=== PATIENT | female | born 1980 | race Caucasian/White ===

== ENCOUNTER → 2021-03-02 | Outpatient (CLI) | payer OTHER ==
[2021-03-02 07:51] LABS: HEMOGLOBIN 14.1 gm/dl (12.3-15.3); RED BLOOD COUNT 4.78 M/UL (4.00-5.10); WHITE BLOOD COUNT 9.5 K/UL (4.5-11.0)
[2021-03-02 08:38] LABS: BUN/CREATININE RATIO 14 (0-10)
[2021-03-03 08:14] LABS: VITAMIN D, 25-HYDROXY 8.5 ng/mL (30.0-100.0)
[2021-03-03 09:14] LABS: HIV SCREEN 4TH GENERATION WRFX Non Reactive (Non Reactive)
[2021-03-03 12:14] LABS: RHEUMATOID ARTHRITIS FACTOR <10.0 IU/mL (0.0-13.9)
[2021-03-03 13:14] LABS: MITOCHONDRIAL (M2) ANTIBODY <20.0 Units (0.0-20.0)
[2021-03-03 15:09] LABS: ANTI-DSDNA ANTIBODIES 6 IU/mL (0-9); ANTISCLERODERMA-70 ANTIBODIES <0.2 AI (0.0-0.9); LYME IGG/IGM AB <0.91 ISR (0.00-0.90)
== END ==
LOC: LAB 07:16
PROVIDERS: Family Medicine
DX: Z13.21 Encounter for screening for nutritional disorder (principal); Z11.4 Encounter for screening for human immunodeficiency virus [HIV]; I10 Essential (primary) hypertension; E03.9 Hypothyroidism, unspecified; F41.9 Anxiety disorder, unspecified; R53.82 Chronic fatigue, unspecified; M25.50 Pain in unspecified joint
CPT/HCPCS: 36415; 80053; 80061; 83036; 83540; 84439; 84443; 85025; 85652; 86038; 86140; 86200; 86225; 86235; 86431; 86618; 87389

== ENCOUNTER → 2021-06-01 | Outpatient (CLI) | payer OTHER | LOC: NM 12:41 | DX: R11.12 Projectile vomiting (principal) | CPT/HCPCS: 78264; A9541 ==